=== PATIENT | female | born 1930 | race Caucasian/White ===

== ENCOUNTER → 2016-08-16 | Outpatient (CLI) | payer MEDICARE, BC ==
[2015-02-05 12:05] VITALS: BP 104/47
[~2016-08-16] MED LIST: ASPIRIN E.C. 8181 MG PO; CALCIUM 500 +1 EAC1 PO; CRANBERRY200 MG PO; LISINOPRIL40 MG PO; LOPRESSOR 550 MG/TAB PO; LOVASTATIN20 M1 PO; TESSALON PERLE100 M1 PO; ZYRTEC10 M3 PO
== END ==
LOC: RAD 15:26
DX: S09.8XXA Other specified injuries of head, initial encounter (principal); S81.012A Laceration without foreign body, left knee, initial encounter

== ENCOUNTER → 2016-10-11 | Outpatient (CLI) | payer MEDICARE, BC ==
[2015-02-05 12:05] VITALS: BP 104/47
== END ==
LOC: LAB 08:17
DX: I10 Essential (primary) hypertension (principal); E78.5 Hyperlipidemia, unspecified

== ENCOUNTER → 2016-10-19 | Outpatient (CLI) | payer MEDICARE, BC ==
[2015-02-05 12:05] VITALS: BP 104/47
== END ==
LOC: RAD 11:10
DX: Z13.820 Encounter for screening for osteoporosis (principal); M85.80 Other specified disorders of bone density and structure, unspecified site; M81.0 Age-related osteoporosis without current pathological fracture

== ENCOUNTER → 2017-10-17 | Outpatient (CLI) | payer MEDICARE, BC ==
[2015-02-05 12:05] VITALS: BP 104/47
[2017-10-17 07:39] LABS: BUN/CREATININE RATIO 26.1 (6.0-26.0); CALCIUM 9.4 mg/dL (8.4-10.2); TOTAL BILIRUBIN 0.5 mg/dL (0.2-1.3); TOTAL PROTEIN 7.1 g/dL (6.3-8.2)
== END ==
LOC: LAB 07:11
PROVIDERS: Family Medicine
DX: I10 Essential (primary) hypertension (principal)

== ENCOUNTER → 2018-09-29 | Outpatient (CLI) | payer MEDICARE, BC ==
[2015-02-05 12:05] VITALS: BP 104/47
[2018-09-29 09:18] LABS: ALBUMIN 3.9 g/dL (3.4-4.8); CALCIUM 9.7 mg/dL (8.3-10.5); POTASSIUM 4.1 mmol/L (3.5-5.1); TOTAL BILIRUBIN 0.5 mg/dL (0.2-1.2); TOTAL PROTEIN 6.5 g/dL (6.2-8.1)
== END ==
LOC: LAB 08:41
PROVIDERS: Family Medicine
DX: I10 Essential (primary) hypertension (principal); E78.5 Hyperlipidemia, unspecified

== ENCOUNTER → 2018-10-05 | Outpatient (CLI) | payer MEDICARE, BC ==
[2015-02-05 12:05] VITALS: BP 104/47
== END ==
LOC: RAD 11:09
DX: Z00.00 Encounter for general adult medical examination without abnormal findings (principal); M19.041 Primary osteoarthritis, right hand; M25.531 Pain in right wrist; M25.511 Pain in right shoulder

== ENCOUNTER → 2018-11-23 | Outpatient (CLI) | payer MEDICARE, BC ==
[2015-02-05 12:05] VITALS: BP 104/47
== END ==
LOC: RAD 15:00
DX: M75.111 Incomplete rotator cuff tear or rupture of right shoulder, not specified as traumatic (principal)

== ENCOUNTER 2018-11-24 10:00 | Outpatient (RCR) | payer MEDICARE, BC ==
[2015-02-05 12:05] VITALS: BP 104/47
== END 2018-11-24 10:30 | disposition still patient (30) ==
LOC: OT 10:00
DX: M81.8 Other osteoporosis without current pathological fracture (principal); M19.90 Unspecified osteoarthritis, unspecified site; M25.511 Pain in right shoulder; M79.644 Pain in right finger(s); M25.531 Pain in right wrist

== ENCOUNTER → 2018-12-27 | Outpatient (CLI) | payer MEDICARE, BC ==
[2015-02-05 12:05] VITALS: BP 104/47
== END ==
LOC: LAB 11:55
DX: N30.00 Acute cystitis without hematuria (principal)

== ENCOUNTER → 2019-11-06 | Outpatient (CLI) | payer MEDICARE, BC ==
[2015-02-05 12:05] VITALS: BP 104/47
[2019-11-06 09:29] LABS: ALBUMIN 3.8 g/dL (3.4-4.8); POTASSIUM 4.2 mmol/L (3.5-5.1)
[2019-11-06 09:30] LABS: CALCIUM 9.2 mg/dL (8.3-10.5)
[2019-11-06 09:32] LABS: TOTAL PROTEIN 6.7 g/dL (6.2-8.1)
[2019-11-06 09:33] LABS: TOTAL BILIRUBIN 0.5 mg/dL (0.2-1.2)
== END ==
LOC: LAB 08:59
PROVIDERS: Family Medicine
DX: I10 Essential (primary) hypertension (principal); E78.5 Hyperlipidemia, unspecified

== ENCOUNTER → 2019-11-13 | Outpatient (CLI) | payer MEDICARE, BC ==
[2015-02-05 12:05] VITALS: BP 104/47
== END ==
LOC: MAMMO 14:58
DX: Z13.820 Encounter for screening for osteoporosis (principal); M81.8 Other osteoporosis without current pathological fracture; M19.90 Unspecified osteoarthritis, unspecified site; H91.90 Unspecified hearing loss, unspecified ear; I10 Essential (primary) hypertension; E78.5 Hyperlipidemia, unspecified; K44.9 Diaphragmatic hernia without obstruction or gangrene; M25.511 Pain in right shoulder

== ENCOUNTER → 2020-12-22 | Outpatient (CLI) | payer MEDICARE, BC ==
[2020-12-22 09:54] LABS: ALBUMIN 3.9 g/dL (3.4-4.8); POTASSIUM 4.2 mmol/L (3.5-5.1)
[2020-12-22 09:55] LABS: CALCIUM 9.7 mg/dL (8.3-10.5)
[2020-12-22 09:57] LABS: TOTAL PROTEIN 6.7 g/dL (6.2-8.1)
[2020-12-22 09:58] LABS: TOTAL BILIRUBIN 0.5 mg/dL (0.2-1.2)
== END ==
LOC: LAB 09:23
PROVIDERS: Family Medicine
DX: I10 Essential (primary) hypertension (principal); E78.5 Hyperlipidemia, unspecified

== ENCOUNTER → 2020-12-30 | Outpatient (CLI) | payer MEDICARE, BC | LOC: RAD 08:39 | DX: R06.09 Other forms of dyspnea (principal) ==

== ENCOUNTER 2021-05-01 12:39 | Emergency (ER) | payer MEDICARE, BC ==
[2021-05-01 12:50] VITALS: BP 141/74
[2021-05-01 13:24] LABS: PH-URINE 5.5 (5.0 - 8.0); URINE APPEARANCE CLOUDY; URINE BILIRUBIN NEGATIVE (NEGATIVE); URINE BLOOD 50 ery/uL (NEGATIVE); URINE COLOR LIGHT YELLOW; URINE GLUCOSE NEGATIVE (NEGATIVE); URINE KETONE TR (NEGATIVE); URINE LEUKOCYTE ESTERASE 2+ (NEGATIVE); URINE NITRATE NEGATIVE (NEGATIVE); URINE PROTEIN(semi-quant) 2+ (NEGATIVE); URINE UROBILINOGEN NORMAL (NORMAL); URINE WBC >50 /hpf (0-3)
[2021-05-01] MEDS ORDERED: BACTRIM DS TAB1 EACH PO (13:31)
== END 2021-05-01 13:37 | disposition home or self-care (01) ==
LOC: ED 12:39
PROVIDERS: Physician Assistant
DX: N39.0 Urinary tract infection, site not specified (principal); I10 Essential (primary) hypertension; E78.5 Hyperlipidemia, unspecified; Z87.891 Personal history of nicotine dependence; Z88.5 Allergy status to narcotic agent; Z79.899 Other long term (current) drug therapy

== ENCOUNTER → 2021-06-08 | Outpatient (CLI) | payer MEDICARE, BC ==
[~2021-06-08] MED LIST changes: +BACTRIM DS TAB1 EACH PO
== END ==
LOC: LAB 11:01
DX: N30.01 Acute cystitis with hematuria (principal)

== ENCOUNTER → 2021-07-20 | Outpatient (CLI) | payer MEDICARE, BC | LOC: LAB 17:06 | DX: J20.9 Acute bronchitis, unspecified (principal); Z20.822 Contact with and (suspected) exposure to COVID-19 ==

== ENCOUNTER → 2021-07-24 | Outpatient (CLI) | payer MEDICARE, BC | LOC: RAD 15:12 | DX: R05.9 Cough, unspecified (principal) ==

== ENCOUNTER → 2021-07-25 | Outpatient (CLI) | payer MEDICARE, BC | LOC: LAB 10:21 | DX: R30.9 Painful micturition, unspecified (principal) ==

== ENCOUNTER → 2021-08-19 | Outpatient (CLI) | payer MEDICARE, BC ==
[2021-08-19 11:16] LABS: URINE APPEARANCE CLOUDY; URINE BILIRUBIN NEGATIVE (NEGATIVE); URINE COLOR YELLOW; URINE GLUCOSE NEGATIVE (NEGATIVE); URINE KETONE NEGATIVE (NEGATIVE); URINE NITRATE POSITIVE (NEGATIVE); URINE PROTEIN(semi-quant) 1+ (NEGATIVE); URINE UROBILINOGEN NORMAL (NORMAL)
[2021-08-19 11:17] LABS: URINE BLOOD TRACE (NEGATIVE); URINE LEUKOCYTE ESTERASE 2+ (NEGATIVE); URINE WBC >50 /hpf (0-3)
[2021-08-19 12:17] LABS: POTASSIUM 4.7 mmol/L (3.5-5.1)
== END ==
LOC: LAB 10:28
PROVIDERS: Family Medicine
DX: R30.9 Painful micturition, unspecified (principal)